=== PATIENT | male | born 1980 | race Caucasian/White ===

== ENCOUNTER 2022-09-03 00:56 | Emergency (ER) | payer SELFPAY ==
[2022-09-03 00:57] VITALS: BMI 24.3
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
[2022-09-03 01:59] VITALS: BP 99/80; PULSE 84; RESP 18; O2SAT 100
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
--- NOTE | 2022-09-06 12:33 | DCPLANNER ---
TCM called patient due to no primary care physician - no answer at this time.
== END 2022-09-03 03:07 | disposition home or self-care (01) ==
PROVIDERS: Emergency Provider Emergency Medicine
DX: F32.A Depression, unspecified (principal); F22 Delusional disorders
CPT/HCPCS: 99283

== ENCOUNTER 2022-12-09 15:57 | Emergency (ER) | payer SELFPAY ==
[2022-12-09 15:59] VITALS: BP 175/116; PULSE 79; TEMP 36.9; O2SAT 95; BMI 25.7
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
[2022-12-09] MEDS: tetanus-dipt-pertussis 0.5 mL SDV IM (16:49)
== END 2022-12-09 17:07 | disposition home or self-care (01) ==
PROVIDERS: Emergency Provider Emergency Medicine
DX: S01.511A Laceration without foreign body of lip, initial encounter (principal); Y04.2XXA Assault by strike against or bumped into by another person, initial encounter; Y92.149 Unspecified place in prison as the place of occurrence of the external cause; Z23 Encounter for immunization
CPT/HCPCS: 12011; 90471; 90715; 99283

== ENCOUNTER 2023-08-08 19:32 | Inpatient (IN) | payer SELFPAY ==
[2023-08-08 19:51] VITALS: BP 169/95; PULSE 107; RESP 12; TEMP 36.9; O2SAT 95; BMI 24.4
--- NOTE | 2023-08-08 20:00 | ED.C_ITS ---
HPI - Psych 2 General: Chief Complaint: Psychiatric Symptoms Stated Complaint: MHE Time Seen by Provider: 08/08/23 19:35 Source: patient Mode of arrival: ambulatory Limitations: no limitations History of Present Illness: 43-year-old male states he has been havi ng suicidal ideations. He states had multiple life stressors states that his girlfriend just left him he states he has been thinking about slitting his wrist. No previous admission he is not on any meds states that he feels like he needs to get help as he feels like he is going to kill himself. Associated symptoms: Reports depression and suicidal ideation Review of Systems 2 Const: Denies: fever(s), chills, body aches or change in appetite ENMT: Denies: throat pain or dental pain Card: Denies: chest pain Resp: Denies: dyspnea GI: Denies: abdominal pain, nausea, vomiting or diarrhea Musc: Denies: neck pain or back pain Skin/Breast: Denies: rash Neuro: Denies: headache(s) Psych: Reports: depression and suicidal ideation Physical Exam 2 Const: COMMON NORMALS: no acute distress, patient oriented x3 and healthy appearing HENMT: COMMON NORMALS: normocephalic and atraumatic HEAD & SCALP: n ormocephalic and atraumatic Eye: COMMON NORMALS: conjunctivae normal CONJUNCTIVA: Yes conjunctivae normal Neck/C-Spine: COMMON NORMALS: full ROM and supple Chest: COMMONS NORMALS: normal inspection of the chest Resp: COMMON NORMALS: normal respiratory effort Extremity: COMMON NORMALS: normal to inspection and full ROM Neuro: COMMON NORMALS: patient oriented x3, moves all extremities and no focal motor deficits Psych: COMMON NORMALS: mental status grossly normal, Normal thought process present and cooperative THOUGHT PROCESS: Normal thought process present T HOUGHT CONTENT: Yes Suicidality present Skin: COMMON NORMALS: no rashes or lesions noted and no wounds GENERAL SKIN EXAM: no rashes or lesions noted Course 2 Vital Signs: Vital signs: Vital Signs Temperature 98.5 F 08/08/23 19:51 Pulse Rate 107 H 08/08/23 19:51 Respiratory Rate 12 08/08/23 19:51 Blood Pressure 169/95 08/08/23 19:51 Pulse Oximetry 95 08/08/23 19:51 Oxygen Delivery Me thod Room Air 08/08/23 19:51 MDM - Psych Medical Decision Making Patient presents here with suicidal ideations he is medically cleared spoke to Dr. Kessler he is placed under 96-hour hold will admit Lab Data I reviewed the patient's lab results. 08/08/23 20:01 08/08/23 20:01 Laboratory Results WBC 12.42 10^3/uL (3.29-11.43) H 08/08/23 20:01 RBC 5.07 10^6/uL (3.85-5.65) 08/08/23 20:01 Hgb 16.20 g/dL (11.27-16.99) 08/08/23 20:01 Hct 46.5 % (37-53) 08/08/23 20:01 MCV 91.7 fl (82-101) 08/08/23 20:01 MCH 32.0 pg (27-33) 08/08/23 20:01 MCHC 34.8 g/dL (30-55) 08/08/23 20:01 RDW 13.3 % (12.1-15.1) 08/08/23 20:01 Plt Count 343 10^3/cmm (157-399) 08/08/23 20:01 MPV 10.0 fL (7.4-10.4) 08/08/23 20:01 Neut % (Auto) 82.9 % 08/08/23 20:01 Lymph % (Auto) 8.0 % 08/08/23 20:01 [place] % (Auto) 8.2 % 08/08/23 20:01 Eos % (Auto) 0.2 % 08/08/23 20:01 Baso % (Auto) 0.4 % 08/08/23 20:01 Neut # (Auto) 10.30 10^3/uL (1.8-7.7) H 08/08/23 20:01 Lymph # (Auto) 1.0 10^3/uL (0.8-4.8) 08/08/23 20:01 [place] # (Auto) 1.0 10^3/uL (0.2-0.9) H 08/08/23 20:01 Eos # (Auto) 0.0 10^3/uL (0.0-0.8) 08/08/23 20:01 Baso # (Auto) 0.1 10^3/uL (0.0-0.1) 08/08/23 20:01 Nucleated RBC % (auto) 0 % 08/08/23 20: Nucleated RBCs # 0.0 /100WBC 08/08/23 20:01 Sodium 135 mmol/L (136-145) L 08/08/23 20:01 Potassium 3.8 mmol/L (3.5-5.1) 08/08/23 20:01 Chloride 99 mmol/L (98-107) 08/08/23 20:01 Carbon Dioxide 23 mmol/L (22-29) 08/08/23 20:01 Anion Gap 16.8 (5-19) 08/08/23 20:01 BUN 26 mg/dL (6-20) H 08/08/23 20:01 Creatinine 1.2 mg/dL (0.7-1.2) 08/08/23 20:01 GFR Calculation 66.1 mL/min (90-130) L 08/08/23 20: Glucose 117 mg/dL (65-115) H 08/08/23 20:01 Calculated Osmolality 286 mOsm/kg (285-295) 08/08/23 20:01 Calcium 9.8 mg/dL (8.5-10.5) 08/08/23 20:01 Total Bilirubin 2.4 mg/dL (0.15-1.2) H 08/08/23 20:01 AST 31 U/L (0-40) 08/08/23 20:01 ALT 8 U/L (0-41) 08/08/23 20:01 Alkaline Phosphatase 85 U/L (40-130) 08/08/23 20:01 Total Protein 7.8 g/dL (6.6-8.7) 08/08/23 20:01 Albumin 4.8 g/dL (3.5-5.2) 08/08/23 20: Globulin 3.0 g/dL (1.3-4.6) 08/08/23 20:01 Salicylates 0.5 mg/dL (3-10) L 08/08/23 20:01 Acetaminophen < 5.0 ug/mL (10-30) L 08/08/23 20:01 Ethyl Alcohol < 10 mg/dL (0-10) 08/08/23 20:01 No radiology studies performed this visit Discharge Plan Discharge Patient Disposition: Admitted As Inpatient Admit Provider: Miguel Kessler Clinical Impression: Suicidal ideation Condition: Stable Coding Level of Care Code ED Web Manager for Floridalma Howell
[2023-08-08 20:08] LABS: Basophils # 0.1 10^3/uL (0.0-0.1); Basophils % 0.4 %; Eosinophils % 0.2 %; Hematocrit 46.5 % (37-53); Mean Corpuscular HGB Conc 34.8 g/dL (30-55); Mean Corpuscular Volume 91.7 fl (82-101); Monocytes % 8.2 %; Neutrophils % 82.9 %; Nucleated Red Blood Cells % 0 %; Platelet Count 343 10^3/cmm (157-399); Red Blood Count 5.07 10^6/uL (3.85-5.65); Red Cell Distribution Width 13.3 % (12.1-15.1); White Blood Count 12.42 10^3/uL (3.29-11.43)
[2023-08-08 20:28] LABS: Acetaminophen < 5.0 ug/mL (10-30); Alanine Aminotransferase 8 U/L (0-41); Albumin Level 4.8 g/dL (3.5-5.2); Alcohol Level < 10 mg/dL (0-10); Alkaline Phosphatase 85 U/L (40-130); Anion Gap 16.8 (5-19); Aspartate Amino Transferase 31 U/L (0-40); Blood Urea Nitrogen 26 mg/dL (6-20); Calcium 9.8 mg/dL (8.5-10.5); Carbon Dioxide 23 mmol/L (22-29); Chloride 99 mmol/L (98-107); Creatinine Clr Calc Pharmacy 88.9378; Glomerular Filtration Rate 66.1 mL/min (90-130); Glucose 117 mg/dL (65-115); Osmolality Calculated 286 mOsm/kg (285-295); Potassium 3.8 mmol/L (3.5-5.1); Salicylate 0.5 mg/dL (3-10); Sodium 135 mmol/L (136-145); Total Bilirubin 2.4 mg/dL (0.15-1.2); Total Protein 7.8 g/dL (6.6-8.7)
--- NOTE | 2023-08-08 20:47 | PC.NURSE ---
96 Hour Involuntary Hold Patient Rights have been reviewed with the patient and a copy of the same has been provided to him. Law Clerk Ahmet Perez was present at bedside at the time of presentation of Rights.
--- NOTE | 2023-08-08 20:54 | PC.NURSE ---
nurse unavailable at this time to take report
[2023-08-08 22:00] VITALS: BP 174/104; PULSE 87; RESP 18; TEMP 36.7; O2SAT 98
[2023-08-08 22:22] LABS: Amphetamines Screen Urine Positive (Negative); Barbiturates Screen Urine Negative (Negative); Benzodiazepines Screen Urine Negative (Negative); Cocaine Screen Urine Negative (Negative); Opiate Screen Urine Negative (Negative); PCP Screen Urine Negative (Negative); THC Screen Urine Positive (Negative)
[2023-08-08 23:00] VITALS: BP 180/97; BMI 24.4
[2023-08-09] MEDS: nicotine 2 mg Gum BUCCAL ×7 (00:06→19:03)
[2023-08-09 06:00] VITALS: BP 160/88; PULSE 77; RESP 18; TEMP 36.8; O2SAT 95
--- NOTE | 2023-08-09 07:21 | P.NPUHP_ITS ---
Providers/Chief Complaint 2 Admitting Physician: Miguel Kessler MD Chief Complaint: MHE HPI NPU History of Present Illness Jose Manuel Hanna is a 43 year old male who presented to the emergency department with the following report: Chief Complaint: Psychiatric Symptoms Stated Complaint: MHE Time Seen by Provider: 08/08/23 19:35 Source: patient Mode of arrival: ambulatory Limitations: no limitations History of Present Illness: 43-year-old male states he has been having suicidal ideations. He states had multiple life stressors states that his girlfriend just left him he states he has been thinking about slitting his wrist. No previous admission he is not on any meds states that he feels like he needs to get help as he feels like he is going to kill himself. Associated symptoms: Reports depression and suicidal ideation He was admitted to the neuropsychiatric unit for definitive treatment of those issues. He is known to this junior copywriter from a past consult in the emergency department where and he was having significant paranoia similar to now but there was no UDS at that time. There was a UDS this time and it was positive for cannabis and amphetamines. Which we had some suspicion that that was the cause of his paranoia last time. An excerpt of that consult is included below for context. He presented today reporting: Chief complaint Patient expresses feelings of paranoia, anxiety, and distress due to recent personal events including a breakup, potential home invasion, and family issues. History of the present complaint The patient expressed a preference for sharing his own narrative rather than having others shape his thoughts. He reported a recent incident of paranoia, where he believed people were driving by his house. This incident occurred while he was in the emergency department, where he had been previously seen. The patient described a recent breakup with his girlfriend, who he suspected was cheating on him. He discovered an empty syringe wrapper in their rental car, which led to a confrontation and her departure. Following this, he experienced a power outage at his home, which he attributed to someone turning off the breaker. He called the police, suspecting a break-in attempt. The patient reported feeling emotionally distressed after his girlfriend left, with her sending him messages suggesting he should kill himself. He also mentioned that she had previously led him to believe that she was , which turned out to be false, causing further emotional distress. The patient reported feeling uncomfortable staying at his family property alone, which led him to seek help. He mentioned that the property, a five-bedroom home [place] [address] [place], was inherited from his grandmother and is currently going through probate. He expressed concerns about his sister's intentions to sell the property. The patient reported a recent incident where he used drugs, specifically mentioning smoking a blunt and using a pipe. He expressed regret over this, stating that it threw his balance off. He mentioned having quit two jobs recently due to his girlfriend's complaints about his absence and the commute. The patient is currently on probation, with a 10-year backup. He expressed fear of going back to detention and mentioned his intention to find a residential place to stay and save money for an apartment. The patient also mentioned his mother, who is currently in a long-term after multiple suicide attempts. He expressed a desire to visit her but was unsure if he would be allowed to. He also mentioned his sister's aggressive behavior, suspecting her of breaking into his house and causing damage. The patient reported feeling anxious and drained over the past few days. He expressed a desire to understand his current situation and plan for the future. He also mentioned a fear of being alone and a desire not to harm himself. Mental health history Patient has a history of paranoia, anxiety, and distress. Social history Patient has a history of substance use, recently relapsed four days ago. He has been working two different jobs but quit due to personal reasons. He has a strained relationship with his ex-girlfriend and family. His mother is currently in a long-term due to mental health issues. Per his 09/03/2022 [facility] emergency room psychiatric consult: History of Present Illness Jose Manuel Hanna is a 42 year old male who presents to the emergency department with the following report: Chief Complaint: Psychiatric Symptoms Stated Complaint: SI Time Seen by Provider: 09/03/22 00:57 Source: patient and EMS Mode of arrival: EMS Limitations: no limitations History of Present Illness: 42-year-old here male that is here with EMS. He states that his girlfriend's been in detention and her family he believes is out to get him he had someone told him today that there is a hit out on him and he has been nervous throughout the day. He states that he felt like someone had may have in his house he went into town he states that Jem's he became nervous again and just called police and had ambulance bring him here because he is feared for his life at they are. He denies being some homicidal or suicidal. He does not appear to have any hallucinations or acute psychosis here. EMS states this is a story and told them as well. Associated symptoms: Deny depression. Psychiatric consult requested to assess whether discharge was reasonable. Patient presented today reporting that he has really struggled with a relationship with his significant other. She is currently in [facility] but he has either concerns or paranoia about whether she is actually out at this point. He told very convoluted story about getting warnings from people about what she is up to. He talked about possible break ins into his home. He does acknowledge a history of drug use but was unclear about how recent his drug use has been. He denied lethality and only focused on this concern that he is being used by his girlfriend. He denied history of mental illness. He denied history of psychosis. We discussed that he could benefit from further evaluation. We talked about the crisis stabilization unit and and being able to utilize that. He is currently working and lives on property with his boss. Expressed a desire to get back to work and just probably needing to face that this relationship is over. We reviewed his psychosocial history and there were no other issues germane to medical decision-making. He was able to contract for safety outside the hospital prior to discharge. Meds NPU Home Medications Medication Instructions Recorded Confirmed Last Taken Type No Known Home Medications 08/08/23 08/08/23 Unknown History Allergies Allergy/AdvReac Type Severity Reaction Status Date / Time No Known Allergies Allergy Verified 08/08/23 20:09 [facility] NPU 2 PFS: Social History Smoking and tobacco/nicotine status: current every day tobacco/nicotine user Mental Status Exam 2 MSE Comments: This is a well-nourished well-developed white likely part male with hospital scrubs on with adequate grooming and eye contact. Extensive tattooing on his exposed skin on arms and torso neck. No abnormal movements except for mild psychomotor retardation. Cooperative with exam in mild distress. Speech was slightly decreased rate and normal volume with slight accent. Mood described as anxious, affect congruent. Thought process organized. Thought content: Patient denied suicidal or homicidal ideation, there were no delusions reported but paranoia noted. He denied any auditory or visual hallucinations but had some reports of scenarios that likely represented auditory or visual hallucinations. Patient exhibits signs of anxiety, distress, and paranoia. He has thoughts of self-harm but denies any intent to harm others. Attention and concentration were intact and memory appear somewhat unreliable likely secondary to paranoia and psychosis but none were formally tested. Alert and oriented x3. Insight was limited, judgment fair, impulse control limited. Vitals/I&O/Wt Last Vital Signs Temp 98.3 F 08/09/23 06:00 Pulse 77 08/09/23 06:00 Resp 18 08/09/23 06:00 BP 160/88 08/09/23 06:00 Pulse Ox 95 08/09/23 06:00 O2 Del Method Room Air 08/09/23 06:00 Weight last 48 hrs Weight 81.647 kg Weight 81.647 kg Data NPU 08/08/23 20:01 08/08/23 20:01 A&P Assessment and plan (1) Paranoia: (2) Partner relational problem: (3) Methamphetamine use disorder, moderate, dependence: (4) Methamphetamine-induced psychotic disorder: (5) Psychosis: (6) Suicidal ideation: Plan This is a 43-year-old white/ male with no significant mental health history with some history of addiction who presents as he did about a year ago with likely paranoia and concerns for suicidality related to challenges with a significant other. Patient is in a state of high distress due to recent personal events. He is struggling with feelings of paranoia and anxiety, and has recently relapsed into substance use. His social situation is unstable, with strained relationships and potential homelessness. 1. Continue the medication. Will consider Zyprexa to help with anxiety and psychosis. 2. Continue every 15 minute checks for safety. 3. Encourage individual, group and milieu therapies. 4. Encourage sober living treatment after discharge at the highest level of care to which he is willing to commit. 5. Evaluate against the backdrop of 96-hour hold. Involuntary Hold Information 2 96 Hour Hold: 96 Hour Involuntary Admission: Yes 96 Hour Hold Ending Date: 08/08/23 96 Hour Hold Ending Time: 21:10 Attestations NPU 2 Medical Necessity Statement*: Inpatient hospitalization is medically necessary and the clinically appropriate intervention at this time. We will monitor/add medications and make changes as indicated. He will be in the hospital for over 2 midnights. Likely length of stay 3 to 5 days. 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
[2023-08-09] MEDS: nicotine 4 mg lozenge MUCOUS MEM (08:20)
--- NOTE | 2023-08-09 09:58 | PC.NURSE ---
Patient fixated on his girlfriend/ex-girlfriend and her threats toward him. He states she has connections and that he had people on his property last night that he believes wanted to steal his stuff. He says he called the police and they came out to take a statement. Patient does admit to using meth recently and says he had been sober for months before then. Patient had been on the phone this morning for quite some time and appeared to be agitated. This RN was able to determine from doing his assessment that it was his girlfriend/ex-girlfriend. Patient stated she was talking greasy to him and that she told him she was living with another man at this time. Patient appeared frustrated with his situation, but said he wanted help. Cooperative with assessment.
[2023-08-09 13:08] VITALS: BP 152/97; PULSE 94; RESP 20; TEMP 36.9; O2SAT 95
[2023-08-09] MEDS: hyDROXYzine 25 mg Capsule 50 MG PO (16:25)
[2023-08-09 20:28] VITALS: BP 147/89; PULSE 83; RESP 18; TEMP 36.9; O2SAT 94
[2023-08-10 06:00] VITALS: BP 146/106; PULSE 80; RESP 18; TEMP 36.6; O2SAT 94
[2023-08-10] MEDS: nicotine 2 mg Gum BUCCAL ×7 (06:01→20:21)
[2023-08-10 06:18] VITALS: BP 144/99
--- NOTE | 2023-08-10 07:43 | PC.NURSE ---
atient calm and cooperative during morning assessment. Patient stated that he is feeling somewhat depressed because he learned his mom was in the hospital and he has not seen her for years. Patient says that he doesn't want to take medications because he doesn't even like to take Ibuprofen, but that he needs something to help calm his anxiety. Patient took vistaril yesterday, and patient stated that this helped take him down a few notches. Patient denies SI, HI, AVH.
[2023-08-10] MEDS: OLANZapine 5 mg ODT PO ×2 (10:59→18:13)
--- NOTE | 2023-08-10 11:00 | PC.NURSE ---
Patient anxious, wanting to try something different than vistaril to try to balance things out. Administered zyprexa 5mg ODT to patient.
[2023-08-10 13:51] VITALS: BP 143/86; PULSE 56; RESP 20; TEMP 36.8; O2SAT 99
--- NOTE | 2023-08-10 14:15 | P.NPUPN_ITS ---
Subjective NPU 2 Subjective: Patient presented today reporting that he is feeling a little better. He continued to report conflict with his possibly soon-to-be ex and endorsed conversing with her and his sister with limited positive outcomes. We discussed the risks, benefits and alternatives of initiating Zyprexa 5 mg p.o. twice daily with the daily dose being as needed and at night dose being a standing dose. And he understood and agreed to proceed as is documented in this note. We discussed working with the treatment team tomorrow as the social workers can help him with some of his logistical challenges. He says he wants to stay in the area. We discussed the likelihood for discharge in the next 48 hours. He denied any side effects of the medication. Mental Status Exam 2 MSE Comments: This is a well-nourished well-developed white likely part male with hospital scrubs on with adequate grooming and eye contact. Extensive tattooing on his exposed skin on arms and torso neck. No abnormal movements except for mild psychomotor retardation. Cooperative with exam in mild distress. Speech was slightly decreased rate and normal volume with slight accent. Mood described as anxious, affect congruent. Thought process organized. Thought content: Patient denied suicidal or homicidal ideation, there were no delusions reported but paranoia noted. He denied any auditory or visual hallucinations but had some reports of scenarios that likely represented auditory or visual hallucinations. Patient exhibits signs of anxiety, distress, and paranoia. He has thoughts of self-harm but denies any intent to harm others. Attention and concentration were intact and memory appear somewhat unreliable likely secondary to paranoia and psychosis but none were formally tested. Alert and oriented x3. Insight was limited, judgment fair, impulse control limited. Vitals/I&O/Wt Last Vital Signs Temp 98.2 F 08/10/23 13:51 Pulse 56 L 08/10/23 13:51 Resp 20 H 08/10/23 13:51 BP 143/86 08/10/23 13:51 Pulse Ox 99 08/10/23 13:51 O2 Del Method Room Air 08/10/23 06:00 Weight last 48 hrs Weight 81.76 kg Weight 81.647 kg Weight 81.647 kg Data NPU 08/08/23 20:01 08/08/23 20:01 A&P Assessment and plan (1) Paranoia: (2) Partner relational problem: (3) Methamphetamine use disorder, moderate, dependence: (4) Methamphetamine-induced psychotic disorder: (5) Psychosis: (6) Suicidal ideation: Plan This is a 43-year-old white/ male with no significant mental health history with some history of addiction who presents as he did about a year ago with likely paranoia and concerns for suicidality related to challenges with a significant other. Patient is in a state of high distress due to recent personal events. He is struggling with feelings of paranoia and anxiety, and has recently relapsed into substance use. His social situation is unstable, with strained relationships and potential homelessness. 1. Continue the medication. Started Zyprexa 5 mg p.o. nightly as well as 5 mg as needed daily. 2. Continue every 15 minute checks for safety. 3. Encourage individual, group and milieu therapies. 4. Encourage sober living treatment after discharge at the highest level of care to which he is willing to commit. 5. Evaluate against the backdrop of 96-hour hold. Involuntary Hold Information 2 96 Hour Hold: 96 Hour Involuntary Admission: Yes 96 Hour Hold Ending Date: 08/08/23 96 Hour Hold Ending Time: 21:10 Attestations NPU 2 Medical Necessity Statement*: Inpatient hospitalization is medically necessary and the clinically appropriate intervention at this time. We will monitor/add medications and make changes as indicated. Likely length of stay 1-3 days. 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
--- NOTE | 2023-08-10 18:14 | PC.NURSE ---
Patient rating anxiety 5/10. Patient requesting zyprexa, stated that might start him on this as a scheduled medication. Administered zyprexa 5mg ODT.
[2023-08-10 20:27] VITALS: BP 161/118; PULSE 49; RESP 18; TEMP 36.6; O2SAT 97
[2023-08-10] MEDS: OLANZapine 5 mg TABLET PO (21:16)
[2023-08-10] MEDS: trazodone 50 mg Tablet PO (21:16)
[2023-08-10 23:00] VITALS: BP 132/73
[2023-08-11 06:00] VITALS: BP 150/96; PULSE 53; RESP 16; TEMP 36.4; O2SAT 98
[2023-08-11] MEDS: nicotine 2 mg Gum BUCCAL ×5 (08:09→18:55)
--- NOTE | 2023-08-11 09:00 | PC.NURSE ---
RESTING IN BED. DENIES SI/HI AND AVH AT THIS TIME. DENIES PAIN. RATES ANXIETY 0/10 AND DEPRESSION 5/10. PT GOAL FOR THE DAY IS TRY AND TALK TO THE DR. AND SENIOR ACCOUNTING CLERK. ALL QUESTIONS ANSWERD AND SUPPORT VOICED.
[2023-08-11 14:00] VITALS: BP 159/101; PULSE 62; RESP 17; TEMP 36.3; O2SAT 97
[2023-08-11] MEDS: hyDROXYzine 25 mg Capsule 50 MG PO ×2 (14:53→20:34)
[2023-08-11] MEDS: OLANZapine 5 mg ODT PO (17:09)
--- NOTE | 2023-08-11 18:01 | P.NPUPN_ITS ---
Subjective NPU 2 Subjective: Patient presented today reporting that things seem to be going a little better for him. His p.o. visited him and it was a very positive encounter. She reported being supportive of him and describe ways they would help him get connected with programming. She was supportive of the idea of him possibly having the area as he worked with the social work team on possible residential options appear including the shelters and [facility]. He reports that the medication is helpful and he denied any side effects. We discussed working on discharge planning for the next 48 hours. Mental Status Exam 2 MSE Comments: This is a well-nourished well-developed white likely part male with hospital scrubs on with adequate grooming and eye contact. Extensive tattooing on his exposed skin on arms and torso neck. No abnormal movements except for mild psychomotor retardation. Cooperative with exam in mild distress. Speech was slightly decreased rate and normal volume with slight accent. Mood described as feeling better, affect congruent. Thought process organized. Thought content: Patient denied suicidal or homicidal ideation, there were no delusions reported but paranoia noted. He denied any auditory or visual hallucinations but had some reports of scenarios that likely represented auditory or visual hallucinations. Patient exhibits signs of anxiety, distress, and paranoia. He has thoughts of self-harm but denies any intent to harm others. Attention and concentration were intact and memory appear somewhat unreliable likely secondary to paranoia and psychosis but none were formally tested. Alert and oriented x3. Insight was limited, judgment fair, impulse control limited. Vitals/I&O/Wt Last Vital Signs Temp 97.4 F L 08/11/23 14:00 Pulse 62 08/11/23 14:00 Resp 17 08/11/23 14:00 BP 159/101 08/11/23 14:00 Pulse Ox 97 08/11/23 14:00 O2 Del Method Room Air 08/11/23 06:00 Weight last 48 hrs Weight 81.76 kg Data NPU 08/08/23 20:01 08/08/23 20:01 A&P Assessment and plan (1) Paranoia: (2) Partner relational problem: (3) Methamphetamine use disorder, moderate, dependence: (4) Methamphetamine-induced psychotic disorder: (5) Psychosis: (6) Suicidal ideation: Plan This is a 43-year-old white/ male with no significant mental health history with some history of addiction who presents as he did about a year ago with likely paranoia and concerns for suicidality related to challenges with a significant other. Patient is in a state of high distress due to recent personal events. He is struggling with feelings of paranoia and anxiety, and has recently relapsed into substance use. His social situation is unstable, with strained relationships and potential homelessness. 1. Continue the medication. Started Zyprexa 5 mg p.o. nightly as well as 5 mg as needed daily. 2. Continue every 15 minute checks for safety. 3. Encourage individual, group and milieu therapies. 4. Encourage sober living treatment after discharge at the highest level of care to which he is willing to commit. 5. Evaluate against the backdrop of 96-hour hold. Involuntary Hold Information 2 96 Hour Hold: 96 Hour Involuntary Admission: Yes 96 Hour Hold Ending Date: 08/08/23 96 Hour Hold Ending Time: 21:10 Attestations NPU 2 Medical Necessity Statement*: Inpatient hospitalization is medically necessary and the clinically appropriate intervention at this time. We will monitor/add medications and make changes as indicated. Likely length of stay 1-3 days. 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
[2023-08-11] MEDS: trazodone 50 mg Tablet PO ×2 (20:34→21:32)
[2023-08-11] MEDS: OLANZapine 5 mg TABLET PO (20:34)
[2023-08-11 20:44] VITALS: BP 166/105; PULSE 56; RESP 17; TEMP 36.7; O2SAT 97
[2023-08-12 06:00] VITALS: BP 148/96; PULSE 50; RESP 16; TEMP 36.3; O2SAT 97
[2023-08-12] MEDS: nicotine 2 mg Gum BUCCAL ×5 (09:42→19:43)
[2023-08-12 14:00] VITALS: BP 166/81; PULSE 68; RESP 20; TEMP 36.7; O2SAT 96
[2023-08-12] MEDS: OLANZapine 5 mg ODT PO (17:14)
--- NOTE | 2023-08-12 18:04 | W.PM.NPUPNS ---
Subjective NPU Subjective: Patient presented today reporting that he was feeling better with the medication. He reports getting very anxious today when law enforcement came to the building worrying that they were there for home. We discussed that we would be straightforward and honest if there were any issues that would lead to such a breach of his confidentiality. We assured him and discussed the likely plan of discharge to [facility] [place] tomorrow. We discussed that he would have a 30-day supply of his medication in hand when he leaves. He denied any side effects to the medication. Mental Status Exam MSE Comments: This is a well-nourished well-developed white likely part male with hospital scrubs on with adequate grooming and eye contact. Extensive tattooing on his exposed skin on arms and torso neck. No abnormal movements except for mild psychomotor retardation. Cooperative with exam in mild distress. Speech was slightly decreased rate and normal volume with slight accent. Mood described as feeling better, affect congruent. Thought process organized. Thought content: Patient denied suicidal or homicidal ideation, there were no delusions reported but paranoia noted. He denied any auditory or visual hallucinations but had some reports of scenarios that likely represented auditory or visual hallucinations. Patient exhibits signs of anxiety, distress, and paranoia. He has thoughts of self-harm but denies any intent to harm others. Attention and concentration were intact and memory appear somewhat unreliable likely secondary to paranoia and psychosis but none were formally tested. Alert and oriented x3. Insight was limited, judgment fair, impulse control limited. Vitals/I&O/Wt Last Vital Signs Temp 98.1 F 08/12/23 14:00 Pulse 68 08/12/23 14:00 Resp 20 H 08/12/23 14:00 BP 166/81 08/12/23 14:00 Pulse Ox 96 08/12/23 14:00 O2 Del Method Room Air 08/11/23 06:00 Data NPU 08/08/23 20:01 08/08/23 20:01 A&P Assessment and plan (1) Paranoia: (2) Partner relational problem: (3) Methamphetamine use disorder, moderate, dependence: (4) Methamphetamine-induced psychotic disorder: (5) Psychosis: (6) Suicidal ideation: Plan This is a 43-year-old white/ male with no significant mental health history with some history of addiction who presents as he did about a year ago with likely paranoia and concerns for suicidality related to challenges with a significant other. Patient is in a state of high distress due to recent personal events. He is struggling with feelings of paranoia and anxiety, and has recently relapsed into substance use. His social situation is unstable, with strained relationships and potential homelessness. 1. Continue the medication. Started Zyprexa 5 mg p.o. nightly as well as 5 mg as needed daily. 2. Continue every 15 minute checks for safety. 3. Encourage individual, group and milieu therapies. 4. Encourage sober living treatment after discharge at the highest level of care to which he is willing to commit. 5. Evaluate against the backdrop of 96-hour hold. 6. Likely plan to discharge to [facility] in the morning. Involuntary Hold Information 96 Hour Hold: 96 Hour Involuntary Admission: Yes 96 Hour Hold Ending Date: 08/08/23 96 Hour Hold Ending Time: 21:10 Attestations NPU Medical Necessity Statement*: Inpatient hospitalization is medically necessary and the clinically appropriate intervention at this time. We will monitor/add medications and make changes as indicated. Likely length of stay 1-3 days. 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
[2023-08-12 19:25] VITALS: BP 155/95; PULSE 61; RESP 18; TEMP 36.3; O2SAT 95
[2023-08-12] MEDS: trazodone 50 mg Tablet PO (20:08)
[2023-08-12] MEDS: OLANZapine 5 mg TABLET PO (20:08)
[2023-08-13 06:00] VITALS: BP 167/97; PULSE 60; RESP 16; TEMP 36.6; O2SAT 96
[2023-08-13] MEDS: nicotine 2 mg Gum BUCCAL ×2 (08:13→11:28)
--- NOTE | 2023-08-13 09:55 | W.PM.NPUDCS ---
Diagnoses at Discharge Discharge Diagnosis (1) Paranoia: Status: Inactive (2) Partner relational problem: Status: Acute (3) Methamphetamine use disorder, moderate, dependence: Status: Acute (4) Methamphetamine-induced psychotic disorder: Status: Acute (5) Psychosis: Status: Acute (6) Suicidal ideation: Status: Acute Reason for Visit Reason for Visit: [facility]HE Involuntary Hold Information 96 Hour Hold: 96 Hour Involuntary Admission: Yes 96 Hour Hold Ending Date: 08/08/23 96 Hour Hold Ending Time: 21:10 Mental Status Exam MSE Comments: This is a well-nourished well-developed white likely part male with hospital scrubs on with adequate grooming and eye contact. Extensive tattooing on his exposed skin on arms and torso neck. No abnormal movements except for mild psychomotor retardation. Cooperative with exam in mild distress. Speech was slightly decreased rate and normal volume with slight accent. Mood described as feeling better, affect congruent. Thought process organized. Thought content: Patient denied suicidal or homicidal ideation, there were no delusions reported but paranoia noted. He denied any auditory or visual hallucinations but had some reports of scenarios that likely represented auditory or visual hallucinations. Patient exhibits signs of anxiety, distress, and paranoia. He has thoughts of self-harm but denies any intent to harm others. Attention and concentration were intact and memory appear somewhat unreliable likely secondary to paranoia and psychosis but none were formally tested. Alert and oriented x3. Insight was limited, judgment fair, impulse control limited. Discharge Data Studies Completed and Pending: Laboratory Results WBC 12.42 10^3/uL (3. 29-11.43) H 08/08/23 20:01 RBC 5.07 10^6/uL (3.8 5-5.65) 08/08/23 20:01 Hgb 16.20 g/dL (11.27 -16.99) 08/08/23 20:01 Hct 46.5 % (37-53) 08/08/23 20:01 MCV 91.7 fl (82-101) 08/08/23 20:01 MCH 32.0 pg (27-33) 08/08/23 20:01 MCHC 34.8 g/dL (30-55) 08/08/23 20:01 RDW 13.3 % (12.1-15.1 ) 08/08/23 20:01 Plt Count 343 10^3/cmm (157 -399) 08/08/23 20:01 MPV 10.0 fL (7.4-10.4 ) 08/08/23 20:01 Neut % (Auto) 82.9 % 08/08/23 20:01 Lymph % (Auto) 8.0 % 08/08/23 20:01 [place] % (Auto) 8.2 % 08/08/23 20:01 Eos % (Auto) 0.2 % 08/08/23 20:01 Baso % (Auto) 0.4 % 08/08/23 20:01 Neut # (Auto) 10.30 10^3/uL (1. 8-7.7) H 08/08/23 20:01 Lymph # (Auto) 1.0 10^3/uL (0.8- 4.8) 08/08/23 20:01 [place] # (Auto) 1.0 10^3/uL (0.2- 0.9) H 08/08/23 20:01 Eos # (Auto) 0.0 10^3/uL (0.0- 0.8) 08/08/23 20:01 Baso # (Auto) 0.1 10^3/uL (0.0- 0.1) 08/08/23 20:01 Nucleated RBC % (a uto) 0 % 08/08/23 20: Nucleated RBCs # 0.0 /100WBC 08/08/23 20:01 Sodium 135 mmol/L (136-1 45) L 08/08/23 20:01 Potassium 3.8 mmol/L (3.5-5 .1) 08/08/23 20:01 Chloride 99 mmol/L (98-107 ) 08/08/23 20:01 Carbon Dioxide 23 mmol/L (22-29) 08/08/23 20:01 Anion Gap 16.8 (5-19) 08/08/23 20:01 BUN 26 mg/dL (6-20) H 08/08/23 20:01 Creatinine 1.2 mg/dL (0.7-1. 2) 08/08/23 20:01 GFR Calculation 66.1 mL/min (90-1 30) L 08/08/23 20:01 Glucose 117 mg/dL (65-115 ) H 08/08/23 20:01 Calculated Osmolal ity 286 mOsm/kg (285- 295) 08/08/23 20:01 Calcium 9.8 mg/dL (8.5-10 .5) 08/08/23 20:01 Total Bilirubin 2.4 mg/dL (0.15-1 .2) H 08/08/23 20:01 AST 31 U/L (0-40) 08/08/23 20:01 ALT 8 U/L (0-41) 08/08/23 20:01 Alkaline Phosphata se 85 U/L (40-130) 08/08/23 20:01 Total Protein 7.8 g/dL (6.6-8.7 ) 08/08/23 20:01 Albumin 4.8 g/dL (3.5-5.2 ) 08/08/23 20:01 Globulin 3.0 g/dL (1.3-4.6 ) 08/08/23 20:01 Salicylates 0.5 mg/dL (3-10) L 08/08/23 20:01 Urine Opiates Scre en Negative ng/mL (N egative) 08/08/23 20:39 Acetaminophen < 5.0 ug/mL (10-3 0) L 08/08/23 20:01 Ur Barbiturates Sc reen Negative ng/mL (N egative) 08/08/23 20:39 Ur Phencyclidine S crn Negative ng/mL (N egative) 08/08/23 20:39 Ur Amphetamines Sc reen Positive ng/mL (N egative) H 08/08/23 20:39 U Benzodiazepines Scrn Negative ng/mL (N egative) 08/08/23 20:39 Urine Cocaine Scre en Negative ng/mL (N egative) 08/08/23 20:39 U Marijuana (THC) Screen Positive ng/mL (N egative) H 08/08/23 20:39 Ethyl Alcohol < 10 mg/dL (0-10) 08/08/23 20:01 Vitals: Last Vital Signs Temp 97.8 F 08/13/23 06:00 Pulse 60 08/13/23 06:00 Resp 16 08/13/23 06:00 BP 167/97 08/13/23 06:00 Pulse Ox 96 08/13/23 06:00 O2 Del Method Room Air 08/13/23 06:00 Discharge Plan Discharge Patient Disposition: Home Condition: Stable Prescriptions: New Zyprexa 5 mg tablet 5 mg PO DAILY PRN (Reason: psychosis) 30 Days Qty: 30 1RF trazodone 50 mg Tablet 50 mg PO BEDTIME PRN (Reason: Sleep) 30 Days Qty: 30 1RF olanzapine 5 mg Tablet 5 mg PO BEDTIME 30 Days Qty: 30 1RF hydroxyzine pamoate 25 mg Capsule 50 mg PO Q6H PRN (Reason: Anxiety) 30 Days Qty: 120 1RF No Action No Known Home Medications Discharge Orders: Discharge Order (Routine); Ordered 08/13/23 Ordered By: Miguel Kessler Discharge Diet: Regular Discharge Activity: Resume usual activity Patient Instructions: Opioid Safety Discharge Attestations NPU Time Spent in Discharge Care*: less than 30 min Specific Discharge Activities: Specific discharge activities: educating patient, discussing with registered nurse hh case manager/social workers/dc planners, documenting/other paperwork and evaluating patient/reviewing data Coding Level of Care Code Acute Code for Chg Fwd Diagnoses Paranoia F22 Partner relational problem Z63.0 Methamphetamine use disorder, moderate, dependence F15.20 Methamphetamine-induced psychotic disorder F15.959 Psychosis F29 Suicidal ideation R45.851
[2023-08-13 10:03] VITALS: BP 167/97; PULSE 60; RESP 16; TEMP 36.6; O2SAT 96
== END 2023-08-13 13:24 | disposition home or self-care (01) | DRG 897 ==
LOC: ER 20:02 → NP 20:32
PROVIDERS: Admitting Provider Psychiatry & Neurology Psychiatry; Emergency Provider Emergency Medicine; Visit Provider Psychiatry & Neurology Psychiatry
DX: F15.250 Other stimulant dependence with stimulant-induced psychotic disorder with delusions (principal); R45.851 Suicidal ideations; Z63.0 Problems in relationship with spouse or partner
CPT/HCPCS: 80053; 80306; 80307; 85025; 97150; 97165; 99285